=== PATIENT | male | born 1970 | race Caucasian/White ===

== ENCOUNTER 2018-12-02 17:36 | Emergency (ER) | payer SELFPAY ==
[~2018-12-02] VITALS: Ht 172.7 cm; Wt 68.0 kg
[2018-12-02 17:48] VITALS: BP 147/81
== END 2018-12-02 19:00 | disposition home or self-care (01) ==
LOC: ED 18:50
DX: K04.7 Periapical abscess without sinus (principal)
CPT/HCPCS: 99283

== ENCOUNTER 2020-01-04 14:15 | Emergency (ER) | payer OTHER ==
[~2020-01-04] VITALS: Ht 177.8 cm; Wt 68.1 kg
[2020-01-04 14:18] VITALS: BP 136/89
== END 2020-01-04 14:54 | disposition home or self-care (01) ==
LOC: ED 14:45
DX: K08.89 Other specified disorders of teeth and supporting structures (principal); R51 Headache; F17.200 Nicotine dependence, unspecified, uncomplicated
CPT/HCPCS: 99283

== ENCOUNTER 2020-09-25 16:52 | Emergency (ER) | payer OTHER ==
[~2020-09-25] VITALS: Ht 172.7 cm; Wt 65.6 kg
[2020-09-25 16:55] VITALS: BP 126/87
== END 2020-09-25 17:05 | disposition home or self-care (01) ==
LOC: ED 16:55
DX: K04.7 Periapical abscess without sinus (principal)
CPT/HCPCS: 99283